=== PATIENT | male | born 1980 | race African-American/Black ===

== ENCOUNTER 2016-04-29 08:18 | Outpatient (CLI) | payer OTHER | END 2016-04-29 08:45 | disposition short-term general hospital (02) | LOC: AMB 08:18 | DX: S51.011A Laceration without foreign body of right elbow, initial encounter (principal); M54.2 Cervicalgia; X37.1XXA Tornado, initial encounter; Y92.028 Other place in mobile home as the place of occurrence of the external cause | CPT/HCPCS: A0425; A0429 ==

== ENCOUNTER 2016-05-10 10:54 | Emergency (ER) | payer OTHER ==
[~2016-05-10] VITALS: Ht 172.7 cm; Wt 59.0 kg
[2016-05-10 11:38] VITALS: BP 121/70; TEMP 98
== END 2016-05-10 11:38 | disposition home or self-care (01) ==
LOC: ED 10:54
DX: Z48.02 Encounter for removal of sutures (principal)